=== PATIENT | female | born 1990 | race Hispanic/Latino ===

== ENCOUNTER 2017-10-08 19:53 | Emergency (ER) | payer SELFPAY | END 2017-10-08 22:04 | disposition home or self-care (01) | LOC: EDH 19:53 | DX: S93.491A Sprain of other ligament of right ankle, initial encounter (principal); S30.1XXA Contusion of abdominal wall, initial encounter; S60.012A Contusion of left thumb without damage to nail, initial encounter; S80.02XA Contusion of left knee, initial encounter; S19.89XA Other specified injuries of other specified part of neck, initial encounter; V49.49XA Driver injured in collision with other motor vehicles in traffic accident, initial encounter; Y93.89 Activity, other specified; Y92.89 Other specified places as the place of occurrence of the external cause; Y99.8 Other external cause status | CPT/HCPCS: 72040; 73130; 73562; 73610 ==